=== PATIENT | female | born 1960 ===

== ENCOUNTER 2017-12-03 08:14 | Day surgery (SDC) | payer MEDICAID ==
[2017-12-03] MEDS ORDERED: Lactated Ringer's 500 ML IV ONE (08:46)
[2017-12-03] MEDS ORDERED: Propofol 10 mg/ml Inj (20 ML) ONE (08:53)
[2017-12-03 11:30] VITALS: TEMP 97; O2SAT 100
[2017-12-03 11:38] VITALS: BP 105/61; PULSE 59; RESP 13
== END 2017-12-03 12:20 | disposition home or self-care (01) ==
LOC: H.ENDO 08:14
PROVIDERS: ATTEND Internal Medicine Gastroenterology
DX: K57.32 Diverticulitis of large intestine without perforation or abscess without bleeding (principal); D12.3 Benign neoplasm of transverse colon; K63.89 Other specified diseases of intestine; K64.8 Other hemorrhoids
CPT/HCPCS: 45380; 88305; J2001; J2704; J7120